=== PATIENT | female | born 1980 | race Two or more races ===

== ENCOUNTER → 2018-03-03 | Outpatient (CLI) | payer OTHER ==
[~2018-03-03] MED LIST: NAPR500 PO; PHENA200 PO
== END ==
LOC: LAB SHORT 15:00 → LAB 15:00
DX: N39.0 Urinary tract infection, site not specified (principal)
CPT/HCPCS: 87086

== ENCOUNTER 2018-11-04 04:00 | Inpatient (IN) | payer OTHER ==
[~2018-11-04] VITALS: Ht 154.9 cm; Wt 67.1 kg
[2018-11-04 04:26] LABS: BASOPHILS ABSOLUTE AUTO 0.03 K/mm3 (0.00-0.23); BASOPHILS PERCENT AUTO 1 % (0-2); EOSINOPHILS ABSOLUTE AUTO 0.05 K/mm3 (0.00-0.68); EOSINOPHILS PERCENT AUTO 1 % (0-6); Hematocrit 39.6 % (33.0-51.0); Hemoglobin 13.2 g/dL (11.5-16.0); IMMATURE GRAN ABSOLUTE AUTO 0.02 K/mm3 (0.00-0.10); IMMATURE GRAN PERCENT AUTO 0 % (0-1); LYMPHOCYTES ABSOLUTE AUTO 1.73 K/mm3 (0.84-5.20); LYMPHOCYTES PERCENT AUTO 30 % (21-46); MONOCYTES ABSOLUTE AUTO 0.44 K/mm3 (0.16-1.47); MONOCYTES PERCENT AUTO 8 % (4-13); Mean Corpuscular HGB 30.6 pg (26.0-34.0); Mean Corpuscular HGB Conc 33.3 g/dL (31.5-36.5); Mean Corpuscular Volume 92 fL (80-100); NEUTROPHILS ABSOLUTE AUTO 3.53 K/mm3 (1.96-9.15); NEUTROPHILS PERCENT AUTO 61 % (41-73); Platelet Count 124 K/mm3 (150-400); RDW Coefficient Variation 13.2 % (11.7-14.2); RDW Standard Deviation 43.8 fL (35.1-46.3); Red Blood Cell Count 4.32 M/mm3 (3.80-5.20)
[2018-11-04 04:28] LABS: Mean Platelet Volume 13.6 fL (9.1-12.4)
[2018-11-04] MEDS ORDERED: Verotin-Gr Cap1 EACH PO (04:57)
--- NOTE | 2018-11-04 09:04 | NUR ---
11/04/18 0904 Annalise Oliver MALE BORN OVER REPEAT SECTION WITH BILATERAL SALPINGECTOMY. WT 6-15 ([id number]), PLACENTA [id number]. CORD SEGMENT GIVEN TO RT, AND CORD BLOOD GIVEN TO BABY RN. APGARS 9/9.
[2018-11-04 09:18] LABS: PCO2 Cord - Arterial 52.8 mmHg (40-50); PO2 Cord - Arterial 16.1 mmHg (16-20)
[2018-11-04 09:21] LABS: PCO2 Cord - Venous 45.4 mmHg (40-50); PO2 Cord - Venous 26.5 mmHg (28-32); pH Umbilical Cord - Venous 7.34 (7.26-7.35)
--- NOTE | 2018-11-04 18:16 | NUR ---
CONSULT. HE IS LESS THAN 12 HOURS OLD, HAS WOKEN A COUPLE TIMES AND LATCHED TO LEFT NIPPLE FAIRLY WELL. RIGHT NIPPLE HAS A DEEP CLEFT IN IT AND HER OTHER 2 CHILDREN DID NOT LIKE LATCHING ON THIS SIDE. INSTRUCT/DEMO SELF EBM, DROP PLACED ON HIS LIPS, BUT HE CONTINUED SLEEPING. PLACED SKIN TO SKIN ON MOM TO HELP HIM WAKEN. INSTRUCT IN FIRST DAY SLEEP CYCLE, MORE HUNGRY TOMORROW. INSTRUCT/DEMO POSITIONING OF HER HANDS ON BREAST AND BABY TO HELP OBTAIN A DEEPER ASYMETRIC LATCH ON RIGHT SIDE. MOM IS LOVING AND HANDLES HIM WELL. WILL FOLLOW UP TOMORROW TO EVALUATE SUCK AND LATCH. DENIES QUESTIONS.
[2018-11-05 06:29] LABS: BASOPHILS ABSOLUTE AUTO 0.02 K/mm3 (0.00-0.23); BASOPHILS PERCENT AUTO 0 % (0-2); EOSINOPHILS PERCENT AUTO 0 % (0-6); Hematocrit 31.5 % (33.0-51.0); Hemoglobin 10.7 g/dL (11.5-16.0); IMMATURE GRAN ABSOLUTE AUTO 0.04 K/mm3 (0.00-0.10); IMMATURE GRAN PERCENT AUTO 0 % (0-1); LYMPHOCYTES ABSOLUTE AUTO 1.82 K/mm3 (0.84-5.20); LYMPHOCYTES PERCENT AUTO 18 % (21-46); MONOCYTES ABSOLUTE AUTO 0.67 K/mm3 (0.16-1.47); MONOCYTES PERCENT AUTO 6 % (4-13); Mean Corpuscular Volume 91 fL (80-100); NEUTROPHILS ABSOLUTE AUTO 7.84 K/mm3 (1.96-9.15); NEUTROPHILS PERCENT AUTO 76 % (41-73); Platelet Count 110 K/mm3 (150-400); RDW Coefficient Variation 13.6 % (11.7-14.2); RDW Standard Deviation 44.1 fL (35.1-46.3); Red Blood Cell Count 3.45 M/mm3 (3.80-5.20); White Blood Cell Count 10.39 K/mm3 (4.00-11.30)
[2018-11-05 07:02] LABS: Mean Platelet Volume 13.9 fL (9.1-12.4)
--- NOTE | 2018-11-05 13:24 | NUR ---
PT AND KIDS REMAIN AT BEDSIDE.
--- NOTE | 2018-11-05 18:52 | NUR ---
REPORT TO ONCOMING SHIFT
--- NOTE | 2018-11-05 20:28 | NUR ---
NOC ROUNDING PT REQUESTED TO NOT BE BOTHERED EVERY TOW HOURS IF SLEEPING. PT STATED FEELING TIRED TONIGHT.
--- NOTE | 2018-11-06 03:37 | NUR ---
PT UP TO BATHROOM INDEPENDENTLY. ASSISTED WITH BINDER PLACEMENT. PT DENIES NEEDING ANYTHING FOR PAIN AT THIS TIME. NO OTHER REQUESTS AT THIS TIME. PT BACK TO BED TO REST. SLEEPING ON BACK IN CRIB IN MOTHER'S ROOM
[2018-11-06] MEDS ORDERED: IBUP800 PO (08:17)
[2018-11-06] MEDS ORDERED: Percocet 5-3251 EACH (11:57)
--- NOTE | 2018-11-06 12:41 | NUR ---
Printed d/c instructions and teaching reviewed w/pt. Questions answered to her satisfaction. Will call to have bands matched when family comes w/gregeat.
--- NOTE | 2018-11-06 13:05 | NUR ---
No acute changes since assuming care. ID bands matched w/nb. Pt d/c'd home ambulatory to care of family.
== END 2018-11-06 12:58 | disposition home or self-care (01) | DRG 785 ==
LOC: OBS 04:00 → BC 04:01 → OBS 04:08 → BC 04:09
PROVIDERS: ADMIT Obstetrics & Gynecology
PROC: 0UT70ZZ Resection of Bilateral Fallopian Tubes, Open Approach (ICD-10-PCS; 2018-11-04)
PROC: 0UT20ZZ Resection of Bilateral Ovaries, Open Approach (ICD-10-PCS; 2018-11-04)
PROC: 6A550ZT Pheresis of Cord Blood Stem Cells, Single (ICD-10-PCS; 2018-11-04)
PROC: 10D00Z1 Extraction of Products of Conception, Low, Open Approach (ICD-10-PCS; principal; 2018-11-04 08:30)
DX: O34.211 Maternal care for low transverse scar from previous cesarean delivery (principal); Z3A.38 38 weeks gestation of pregnancy; Z37.0 Single live birth
CPT/HCPCS: 36415; 82803; 82947; 85025; 86850; 86900; 86901; J0690; J1100; J1885; J2370; J2405; J2590; J2765; J3010; J7120

== ENCOUNTER → 2024-08-19 | Outpatient (CLI) | payer BC ==
[~2024-08-19] MED LIST changes: +IBUP800 PO; +Percocet 5-3251 EACH; +Verotin-Gr Cap1 EACH PO
[2024-08-20 15:21] LABS: Appearance, Urine Clear (Clear); Bilirubin, Urine Neg (Neg); Blood, Urine Neg (Neg); Glucose Qualitative, Urine Neg (Neg); Ketones, Urine Neg (Neg); Leukocyte Esterase, Urine Neg (Neg); Nitrite, Urine Neg (Neg); Protein, Urine Neg (Neg); Urobilinogen, Urine NORM (Normal)
[2024-08-20 15:24] LABS: Color, Urine Pale Yellow (P-Yellow)
== END ==
LOC: LAB 16:30 → LAB SHORT 16:30
PROVIDERS: Nurse Practitioner Family
DX: R30.0 Dysuria (principal)
CPT/HCPCS: 81003; 87086

== ENCOUNTER → 2024-11-14 | Outpatient (CLI) | payer BC ==
[2024-11-16 09:10] LABS: APTIMA MEDIA TYPE Urine; C. TRACHOMATIS BY TMA Negative (Negative); N. GONORRHOEAE BY TMA Negative (Negative); SPECIMEN SOURCE Urine
== END ==
LOC: LAB SHORT 10:15 → LAB 10:15
PROVIDERS: Nurse Practitioner Family
DX: N39.0 Urinary tract infection, site not specified (principal); R30.0 Dysuria; Z11.8 Encounter for screening for other infectious and parasitic diseases
CPT/HCPCS: 87086; 87491; 87591